=== PATIENT | male | born 1975 | race Caucasian/White ===

== ENCOUNTER 2020-10-31 11:28 | Emergency (ER) | payer MEDICAID, OTHER ==
[~2020-10-31] VITALS: Ht 177.8 cm; Wt 116.4 kg
[~2020-10-31 11:28] MED LIST: CYCL-1 PO; NAPR500T6 PO
[2020-10-31 11:35] VITALS: BP 140/94
[2020-10-31] MEDS ORDERED: BENZ-16 PO (12:11)
[2020-10-31] MEDS ORDERED: ALBU8.5H8 IH (12:11)
[2020-10-31] MEDS ORDERED: DEXA6TAB6 PO (12:11)
== END 2020-10-31 13:30 | disposition home or self-care (01) ==
LOC: ER 11:29
DX: U07.1 COVID-19 (principal); R05 Cough; R43.8 Other disturbances of smell and taste; Z72.89 Other problems related to lifestyle; Z79.899 Other long term (current) drug therapy
CPT/HCPCS: 87635; 99283; C9803

== ENCOUNTER 2021-04-30 22:47 | Emergency (ER) | payer MEDICAID ==
[~2021-04-30] VITALS: Ht 165.1 cm; Wt 122.7 kg
[~2021-04-30 22:47] MED LIST changes: +ALBU8.5H17 IH; +DEXA6TAB6 PO
[2021-05-01 02:14] LABS: ALBUMIN 3.3 G/DL (3.4-5.0); ANION GAP 10 (8-16); BLOOD UREA NITROGEN 22 MG/DL (7-18); BUN/CREATININE RATIO 16.7 (5.4-32.0); CALCIUM 8.6 MG/DL (8.5-10.1); CHLORIDE 105 MMOL/L (99-107); CREATININE 1.32 MG/DL (0.60-1.10); GLUCOSE 157 MG/DL (70-104); SODIUM 141 MMOL/L (135-145); TOTAL CARBON DIOXIDE 26.1 MMOL/L (24-32); eGFR 58 ML/MIN
[2021-05-01 02:24] LABS: POTASSIUM 4.2 MMOL/L (3.5-5.1)
[2021-05-01 02:44] LABS: BASOPHILS # (AUTO) 0.1 X10'3 (0-0.2); LYMPHOCYTES # (AUTO) 1.6 X10'3 (1.1-4.8); MONOCYTES # (AUTO) 0.9 X10'3 (0-0.9); NEUTROPHILS # (AUTO) 5.2 X10'3 (1.8-7.7)
[2021-05-01 02:46] LABS: BASOPHILS % (AUTO) 0.8 % (0-1); EOSINOPHILS # (AUTO) 0.3 X10'3 (0-0.9); EOSINOPHILS % (AUTO) 3.3 % (0-6); HEMOGLOBIN 13.9 g/dl (14.0-17.9); LYMPHOCYTES % (AUTO) 19.9 % (21-51); MEAN CORPUSCULAR HEMOGLOBIN 31.3 PG (27.0-31.0); MEAN PLATELET VOLUME 9.4 FL (7.4-10.4); PLATELET COUNT 211 X10'3 (140-440); RED BLOOD COUNT 4.45 X10'6 (4.70-6.10); RED CELL DISTRIBUTION WIDTH 14.6 % (11.5-14.5); WHITE BLOOD COUNT 8.1 X10'3 (4.5-11.0)
[2021-05-01 02:57] LABS: PARTIAL THROMBOPLASTIN TIME 21 SECONDS (22-32)
[2021-05-01 03:28] VITALS: BP 133/77
[2021-05-01] MEDS ORDERED: APIX5TAB3 PO (04:09)
[2021-05-01] MEDS ORDERED: CEPH-585 PO (04:09)
[2021-05-01] MEDS ORDERED: cephalexin 250mg capsule PO ONE (04:10)
[2021-05-01] MEDS ORDERED: apixaban 5mg tablet PO STA (04:10)
== END 2021-05-01 05:09 | disposition home or self-care (01) ==
LOC: ER 22:48
DX: I80.293 Phlebitis and thrombophlebitis of other deep vessels of lower extremity, bilateral (principal); Z72.89 Other problems related to lifestyle; Z79.2 Long term (current) use of antibiotics; Z79.899 Other long term (current) drug therapy
CPT/HCPCS: 36415; 80048; 85025; 85610; 85730; 93970; 99284